=== PATIENT | male | born 1985 | race Caucasian/White ===

== ENCOUNTER 2017-06-02 06:05 | Emergency (ER) | payer BC ==
[2017-06-02] MEDS: ACETAMINOPHEN 500 MG TAB PO (09:34)
[2017-06-02] MEDS: IBUPROFEN 600 MG TAB PO (09:34)
== END 2017-06-02 10:39 | disposition left against medical advice (07) ==
LOC: FTE 06:05
DX: R05 Cough (principal)
CPT/HCPCS: 99283; Z7502